=== PATIENT | male | born 1955 | race Caucasian/White ===

== ENCOUNTER → 2019-07-14 | Outpatient (CLI) | payer BC ==
--- NOTE | 2019-07-14 12:15 | EST ---
EXERCISE STRESS DATE OF SERVICE: 07/14/2019 AGE: 64 SEX: Male HT: 69" WT: 200 pounds PROTOCOL: Jimenez STAGE: IV DURATION OF EXERCISE: 11 minutes 28 seconds HEART RATE REST: 83 BLOOD PRESSURE REST: 141/86 MAXIMUM HEART RATE ACHIEVED: 171 MAXIMUM BLOOD PRESSURE: 222/81 85% MPHR: 134 100% MPHR: 158 METS: 12.1 INDICATIONS: CLINICAL INFORMATION: Baseline rhythm is sinus mechanism, rate of 83, normal axis and intervals with minor nonspecific ST-T wave changes. Baseline blood pressure 141/86 mmHg. Patient exercised on Jimenez protocol for 11 minute 28 seconds reaching a peak rate 171 beats per minute which is equal to 108% maximum predicted heart rate. Peak blood pressure 222/81 mmHg. Test was terminated secondary to fatigue. There was no chest pain. Electrocardiograph monitoring revealed a [address]-segment depression that resolved in recovery. CONCLUSION: 1. Excellent exercise tolerance with no chest discomfort. 2. Borderline positive electrocardiograph stress testing secondary to baseline EKG abnormality. 3. If clinically indicated, an imaging stress test will be helpful. MMODL / IJN: [id number] /
== END | disposition home or self-care (01) ==
LOC: RADNMMAIN 08:36
PROVIDERS: ATTEND Internal Medicine
DX: I10 Essential (primary) hypertension (principal); E78.5 Hyperlipidemia, unspecified
CPT/HCPCS: 93017

== ENCOUNTER 2020-09-21 14:18 | Inpatient (IN) | payer BC ==
--- NOTE | 2020-09-21 14:40 | ED ---
General Adult HPI - General Chief complaint: Shortness of Breath Stated complaint: SOB Time Seen by Provider: 09/21/20 14:20 Source: patient, RN notes reviewed, old records reviewed Mode of arrival: ambulatory Limitations: no limitations - History of Present Illness Initial comments: This is a 65-year-old male who comes emergency Department states that he has had symptoms for over 2 weeks and was tested positive on September 13. Patient states he is coming in today because he seems more short of breath than normal. He continues to spike a fever. Patient denies any sputum production. Patient states he does have a dry cough. Patient denies any chest pain or palpitations. Patient denies abdominal pain patient denies nausea vomiting diarrhea. Patient denies any loss of taste or smell. Patient denies any headache patient denies numbness weakness. - Related Data Home Medications Medication Instructions Recorded Confirmed No Known Home Medications 09/21/20 09/21/20 Allergies Allergy/AdvReac Type Severity Reaction Status Date / Time No Known Allergies Allergy Verified 09/21/20 16:02 Review of Systems ROS Statement: Those systems with pertinent positive or pertinent negative responses have been documented in the HPI. ROS Other: All systems not noted in ROS Statement are negative. Past Medical History Additional Past Medical History / Comment(s): covid, History of Any Multi-Drug Resistant Organisms: None Reported Past Surgical History: No Surgical Hx Reported Past Psychological History: No Psychological Hx Reported Smoking Status: Never smoker Past Alcohol Use History: Occasional Past Drug Use History: None Reported General Exam - General Exam Comments Initial Comments: GENERAL: Patient is well-developed and well-nourished. Patient is nontoxic and well- hydrated and is in mild distress. ENT: Neck is soft and supple. No significant lymphadenopathy is noted. Oropharynx is clear. Moist mucous membranes. Neck has full range of motion without eliciting any pain. EYES: The sclera were anicteric and conjunctiva were pink and moist. Extraocular movements were intact and pupils were equal round and reactive to light. Eyelid s were unremarkable. PULMONARY: Unlabored respirations. Good breath sounds bilaterally. No audible rales rhonchi or wheezing was noted. CARDIOVASCULAR: There is a regular rate and rhythm without any murmurs gallops or rubs. ABDOMEN: Soft and nontender with normal bowel sounds. SKIN: Skin is clear with no lesions or rashes and otherwise unremarkable. NEUROLOGIC: Patient is alert and oriented x3. Cranial nerves II through XII are grossly intact. Motor and sensory are also intact. Normal speech, volume and content. Symmetrical smile. MUSCULOSKELETAL: Normal extremities with adequate strength and full range of motion. No lower extremity swelling or edema. No calf tenderness. LYMPHATICS: No significant lymphadenopathy is noted PSYCHIATRIC: Normal psychiatric evaluation. Limitations: no limitations Course Vital Signs 09/21/20 09/21/20 14:20 15:45 Temperature 98.1 F Pulse Rate 97 Respiratory 18 18 Rate Blood Pressure 143/86 O2 Sat by Pulse 96 Oximetry Medical Decision Making - Medical Decision Making EKG shows normal sinus rhythm at 85 bpm IA interval 166 QRS is 92 QT interval 374 QTC is 445. Patient's EKG shows no ST segment elevation or depression. Patient was oxygenating at 89-90% at rest and with walking patient dropped down to consistent 86%. I spoke with some physicians he agreed to admit the patient admitted the patient I consult pulmonary. I started the patient on Decadron. - Lab Data Result diagrams: 09/21/20 15:17 09/21/20 15:17 Lab Results 09/21/20 09/21/20 09/21/20 Range/Units 15:17 15:17 15:17 WBC 11.3 H (3.8-10.6) k/uL RBC 4.68 (4.30-5.90) m/uL Hgb 13.8 (13.0-17.5) gm/dL Hct 40.4 (39.0-53.0) % MCV 86.3 (80.0-100.0) fL MCH 29.6 (25.0-35.0) pg MCHC 34.2 (31.0-37.0) g/dL RDW 12.4 (11.5-15.5) % Plt Count 192 (150-450) k/uL MPV 7.1 Neutrophils % 89 % Lymphocytes % 7 % Monocytes % 3 % Eosinophils % 0 % Basophils % 0 % Neutrophils # 10.0 H (1.3-7.7) k/uL Lymphocytes # 0.8 L (1.0-4.8) k/uL Monocytes # 0.3 (0-1.0) k/uL Eosinophils # 0.1 (0-0.7) k/uL Basophils # 0.0 (0-0.2) k/uL PT 9.5 (9.0-12.0) sec INR 0.9 (<1.2) APTT 21.9 L (22.0-30.0) sec D-Dimer 0.58 (<0.60) mg/L FEU Sodium 139 (137-145) mmol/L Potassium 4.1 (3.5-5.1) mmol/L Chloride 105 (98-107) mmol/L Carbon Dioxide 22 (22-30) mmol/L Anion Gap 12 mmol/L BUN 35 H (9-20) mg/dL Creatinine 1.37 H (0.66-1.25) mg/dL Est GFR (CKD-EPI)AfAm 63 (>60 ml/min/1.73 sqM) Est GFR (CKD-EPI)NonAf 55 (>60 ml/min/1.73 sqM) Glucose 123 H (74-99) mg/dL Plasma Lactic Acid Kojo (0.7-2.0) mmol/L Calcium 9.2 (8.4-10.2) mg/dL Magnesium 2.7 H (1.6-2.3) mg/dL Total Bilirubin 0.5 (0.2-1.3) mg/dL AST 31 (17-59) U/L ALT 19 (4-49) U/L Alkaline Phosphatase 55 (38-126) U/L Lactate Dehydrogenase 776 H (313-618) U/L C-Reactive Protein 187.3 H (<10.0) mg/L Total Protein 7.3 (6.3-8.2) g/dL Albumin 4.0 (3.5-5.0) g/dL 09/21/20 Range/Units 15:17 WBC (3.8-10.6) k/uL RBC (4.30-5.90) m/uL Hgb (13.0-17.5) gm/dL Hct (39.0-53.0) % MCV (80.0-100.0) fL MCH (25.0-35.0) pg MCHC (31.0-37.0) g/dL RDW (11.5-15.5) % Plt Count (150-450) k/uL MPV Neutrophils % % Lymphocytes % % Monocytes % % Eosinophils % % Basophils % % Neutrophils # (1.3-7.7) k/uL Lymphocytes # (1.0-4.8) k/uL Monocytes # (0-1.0) k/uL Eosinophils # (0-0.7) k/uL Basophils # (0-0.2) k/uL PT (9.0-12.0) sec INR (<1.2) APTT (22.0-30.0) sec D-Dimer (<0.60) mg/L FEU Sodium (137-145) mmol/L Potassium (3.5-5.1) mmol/L Chloride (98-107) mmol/L Carbon Dioxide (22-30) mmol/L Anion Gap mmol/L BUN (9-20) mg/dL Creatinine (0.66-1.25) mg/dL Est GFR (CKD-EPI)AfAm (>60 ml/min/1.73 sqM) Est GFR (CKD-EPI)NonAf (>60 ml/min/1.73 sqM) Glucose (74-99) mg/dL Plasma Lactic Acid Kojo 0.9 (0.7-2.0) mmol/L Calcium (8.4-10.2) mg/dL Magnesium (1.6-2.3) mg/dL Total Bilirubin (0.2-1.3) mg/dL AST (17-59) U/L ALT (4-49) U/L Alkaline Phosphatase (38-126) U/L Lactate Dehydrogenase (313-618) U/L C-Reactive Protein (<10.0) mg/L Total Protein (6.3-8.2) g/dL Albumin (3.5-5.0) g/dL Critical Care Time Critical Care Time: Yes Total Critical Care Time: 35 Disposition Clinical Impression: Pneumonia due to COVID-19 virus, Hypoxia Disposition: ADMITTED IP TO THIS HOSP Referrals: Shanna Bonilla NPC [Primary Care Provider] - 1-2 days Time of Disposition: 16:41
[2020-09-21 15:32] LABS: Basophils % (A) 0 %; Eosinophils # (A) 0.1 k/uL (0-0.7); Eosinophils % (A) 0 %; HCT 40.4 % (39.0-53.0); HGB 13.8 gm/dL (13.0-17.5); Lymphocytes # (A) 0.8 k/uL (1.0-4.8); Lymphocytes % (A) 7 %; MCH 29.6 pg (25.0-35.0); MCHC 34.2 g/dL (31.0-37.0); MCV 86.3 fL (80.0-100.0); Mean Platelet Volume 7.1; Monocytes # (A) 0.3 k/uL (0-1.0); Monocytes % (A) 3 %; Neutrophils % (A) 89 %; Platelet Count 192 k/uL (150-450); RBC 4.68 m/uL (4.30-5.90); RDW 12.4 % (11.5-15.5); WBC 11.3 k/uL (3.8-10.6)
--- NOTE | 2020-09-21 15:41 | XR ---
EXAMINATION TYPE: XR chest 2V DATE OF EXAM: 09/21/2020 COMPARISON: NONE HISTORY: Suspected COVID-19 pneumonia, shortness of breath. Positive test 3 weeks ago. TECHNIQUE: Frontal and lateral views of the chest are obtained. FINDINGS: Low lung volumes. There are increased opacities mid to lower lungs bilaterally. No pleura l effusion or pneumothorax seen bilaterally The cardiac silhouette size is stable and within normal l imits with atherosclerotic change aortic knob. The osseous structures are intact. IMPRESSION: Multifocal increased opacities in the bilateral mid to lower lungs consistent with covid -19 infection.
[2020-09-21 15:43] LABS: Calcium 9.2 mg/dL (8.4-10.2); Magnesium 2.7 mg/dL (1.6-2.3); Potassium 4.1 mmol/L (3.5-5.1); Total Bilirubin 0.5 mg/dL (0.2-1.3); Total Protein 7.3 g/dL (6.3-8.2)
[2020-09-21 15:59] LABS: INR 0.9 (<1.2); Partial Thromboplastin Time 21.9 sec (22.0-30.0); Prothrombin Time 9.5 sec (9.0-12.0)
[2020-09-21 16:01] LABS: C Reactive Protein 187.3 mg/L (<10.0)
[2020-09-21] MEDS ORDERED: dexAMETHasone 2 MG TAB PO STA (16:41)
[2020-09-21] MEDS ORDERED: SODIUM CHLORIDE 0.9% 1,000 ML IV ONE (16:42)
[2020-09-21] MEDS ORDERED: ONDANSETRON 4 MG/2 ML VIAL IVP PRN (17:12)
[2020-09-21] MEDS ORDERED: SODIUM CHLORIDE 0.9% (DEHP FRE 500 ML IV ONE (17:12)
[2020-09-21] MEDS ORDERED: ACETAMINOPHEN TAB 325 MG TAB PO PRN (17:12)
--- NOTE | 2020-09-21 17:23 | P.HPIM ---
History of Present Illness H&P Date: 09/21/20 Chief Complaint: Shortness of breath and cough This is a 65-year-old male with no significant past medical history who presented to the emergency room with worsening shortness of breath and cough. Patient was diagnosed with COVID-19 last week. He said multiple family members in his household tested positive and he was not feeling well so he went to a local urgent care on September 13 to get tested and got his results back on September 16 that was positive. Patient was prescribed azithromycin and a Medrol Dosepak in the urgent care. He said that he finished a course as prescribed. Hesaid that he has been having symptoms of shortness of breath and cough that is mostly nonproductive and occasionally productive of clear sputum. He is also reporting fevers and chills. He denies any diarrhea or chest pain. He has been monitoring his pulse ox at home and was initially in the mid 90s that is been trending down 80. Today he noted that his O2 sat was 85% at rest so he decided to come to the emergency room. Patient denies any other medical problems. No known lung disease. He is a nonsmoker. Patient was evaluated in the ER and a chest x-ray showed bilateral pneumonia. His O2 sats improved with stool liters of oxygen via nasal cannula. Review of Systems Review of system: 14 points review of systems were obtained and were negative except to what were mentioned in the HPI. Past Medical History Additional Past Medical History / Comment(s): covid, History of Any Multi-Drug Resistant Organisms: None Reported Past Surgical History: No Surgical Hx Reported Past Psychological History: No Psychological Hx Reported Smoking Status: Never smoker Past Alcohol Use History: Occasional Past Drug Use History: None Reported Medications and Allergies Home Medications Medication Instructions Recorded Confirmed Type No Known Home Medications 09/21/20 09/21/20 History Allergies Allergy/AdvReac Type Severity Reaction Status Date / Time No Known Allergies Allergy Verified 09/21/20 16:02 Physical Exam Vitals: Vital Signs Temp Pulse Resp BP Pulse Ox 09/21/20 16:47 90 16 134/83 95 09/21/20 15:45 18 09/21/20 14:20 98.1 F 97 18 143/86 96 Intake and Output 09/21/20 09/21/20 09/21/20 06:59 14:59 22:59 Other: Weight 90.718 kg General: The patient is awake and alert, in no distress Eye: there is normal conjunctiva bilaterally. Neck: The neck is supple, there is no JVD. Cardiovascular: Normal S1-S2, no S3-S4, no murmurs. Respiratory: Lungs scattered crackles bilaterally Gastrointestinal: Abdomen is soft, nontender Musculoskeletal: There is no pedal edema. Neurological:. Speech is normal. Skin: Skin is warm and dry Results CBC & Chem 7: 09/21/20 15:17 09/21/20 15:17 Labs: Abnormal Lab Results - Last 24 Hours (Table) 09/21/20 09/21/20 09/21/20 Range/Units 15:17 15:17 15:17 WBC 11.3 H (3.8-10.6) k/uL Neutrophils # 10.0 H (1.3-7.7) k/uL Lymphocytes # 0.8 L (1.0-4.8) k/uL APTT 21.9 L (22.0-30.0) sec BUN 35 H (9-20) mg/dL Creatinine 1.37 H (0.66-1.25) mg/dL Glucose 123 H (74-99) mg/dL Magnesium 2.7 H (1.6-2.3) mg/dL Lactate Dehydrogenase 776 H (313-618) U/L C-Reactive Protein 187.3 H (<10.0) mg/L Assessment and Plan Assessment: This is a 65-year-old male with past medical history noted below who presented to the emergency room with shortness of breath and cough a week after a positive diagnosis with COVID-19 to local urgent care. Patient was evaluated in the ER and admitted to the hospital for further management of his medical problems noted below. 1. COVID-19 pneumonia: With multifocal opacities noted on chest x-ray. I would start Decadron 6 mg daily. Vitamin C, vitamin D, zinc, and melatonin. We will continue to monitor inflammatory markers. CRP significantly elevated. D-dimer is normal. 2. Acute hypoxic respiratory failure: Currently on 2 L of oxygen via nasal cannula satting in the mid 90s. 3. Sepsis without septic shock: Lactic acid is normal. Normal saline 500 mL bolus ordered. 4. Acute kidney injury: Continue IV fluid hydration with normal saline at 75 mL per hour. 5. GI and DVT prophylaxis: Pepcid and subcu Lovenox 6. Patient is full code Today, I reviewed his medication list and lab work results. I would order Mucinex twice daily. Tessalon Perles as needed for cough. Patient was updated about his current condition. Repeat lab work in the morning.
[2020-09-21] MEDS: ASCORBIC ACID 500 MG TAB PO SCH (18:42)
[2020-09-21] MEDS: CHOLECALCIFEROL 25 MCG (1000 IU) TABLET PO SCH (18:43)
[2020-09-21] MEDS: ZINC SULFATE 220 MG CAP PO SCH (18:43)
[2020-09-21] MEDS: ALBUTEROL HFA INHALER INHALATION SCH (20:37)
[2020-09-22] MEDS: guaiFENesin 600 MG TABLET.ER PO SCH ×3 (00:13→20:13)
[2020-09-22] MEDS: FAMOTIDINE 20 MG TAB PO SCH ×3 (00:13→20:13)
[2020-09-22] MEDS: MELATONIN 5 MG TABLET PO SCH ×2 (00:14→20:13)
[2020-09-22 01:32] LABS: Ferritin 789.8 ng/mL (22.0-322.0)
[2020-09-22] MEDS: ALBUTEROL HFA INHALER INHALATION SCH ×4 (07:18→19:18)
[2020-09-22] MEDS: ASCORBIC ACID 500 MG TAB PO SCH (09:41)
[2020-09-22] MEDS: CHOLECALCIFEROL 25 MCG (1000 IU) TABLET PO SCH (09:41)
[2020-09-22] MEDS: ZINC SULFATE 220 MG CAP PO SCH (09:42)
[2020-09-22] MEDS: dexAMETHasone 2 MG TAB PO SCH (09:42)
[2020-09-22] MEDS: ENOXAPARIN 40 MG/0.4 ML SYRINGE SQ SCH (09:42)
--- NOTE | 2020-09-22 10:02 | P.PN ---
Subjective Progress Note Date: 09/22/20 Patient is feeling about the same today. He said his shortness of breath did not improve. He continued to have cough. He is satting 92% on 2 L of oxygen. No acute events overnight reported by nursing staff. Objective - Vital Signs Vital signs: Vital Signs Temp 98.3 F 09/22/20 05:50 Pulse 72 09/22/20 05:50 Resp 20 09/22/20 05:50 BP 118/77 09/22/20 05:50 Pulse Ox 95 09/22/20 07:18 Intake & Output 09/21/20 09/22/20 09/22/20 18:59 06:59 18:59 Weight 90.718 kg Other: Voiding Method Toilet - Exam General: The patient is awake and alert, in no distress Eye: there is normal conjunctiva bilaterally. Neck: The neck is supple, there is no JVD. Cardiovascular: Normal S1-S2, no S3-S4, no murmurs. Respiratory: Lungs clear to auscultation bilaterally Gastrointestinal: Abdomen is soft, nontender Musculoskeletal: There is no pedal edema. Neurological:. Speech is normal. Skin: Skin is warm and dry - Labs CBC & Chem 7: 09/21/20 15:17 09/21/20 15:17 Labs: Abnormal Lab Results - Last 24 Hours (Table) 09/21/20 09/21/20 09/21/20 Range/Units 15:17 15:17 15:17 WBC 11.3 H (3.8-10.6) k/uL Neutrophils # 10.0 H (1.3-7.7) k/uL Lymphocytes # 0.8 L (1.0-4.8) k/uL APTT 21.9 L (22.0-30.0) sec BUN 35 H (9-20) mg/dL Creatinine 1.37 H (0.66-1.25) mg/dL Glucose 123 H (74-99) mg/dL Magnesium 2.7 H (1.6-2.3) mg/dL Ferritin 789.8 H (22.0-322.0) ng/mL Lactate Dehydrogenase 776 H (313-618) U/L C-Reactive Protein 187.3 H (<10.0) mg/L Procalcitonin (0.02-0.09) ng/mL 09/21/20 Range/Units 15:17 WBC (3.8-10.6) k/uL Neutrophils # (1.3-7.7) k/uL Lymphocytes # (1.0-4.8) k/uL APTT (22.0-30.0) sec BUN (9-20) mg/dL Creatinine (0.66-1.25) mg/dL Glucose (74-99) mg/dL Magnesium (1.6-2.3) mg/dL Ferritin (22.0-322.0) ng/mL Lactate Dehydrogenase (313-618) U/L C-Reactive Protein (<10.0) mg/L Procalcitonin 0.13 H (0.02-0.09) ng/mL Assessment and Plan Assessment: This is a 65-year-old male with past medical history noted below who presented to the emergency room with shortness of breath and cough a week after a positive diagnosis with COVID-19 to local urgent care. Patient was evaluated in the ER and admitted to the hospital for further management of his medical problems noted below. 1. COVID-19 pneumonia: With multifocal opacities noted on chest x-ray. Decadron 6 mg daily day #2. Vitamin C, vitamin D, zinc, and melatonin. We will continue to monitor inflammatory markers. Awaiting pulmonology evaluation 2. Acute hypoxic respiratory failure: Currently on 2 L of oxygen via nasal cannula. 3. Sepsis without septic shock: Lactic acid is normal. Received aggressive IV fluid hydration. 4. Acute kidney injury: Awaiting repeat lab work today 5. GI and DVT prophylaxis: Pepcid and subcu Lovenox 6. Patient is full code Today, I reviewed his medication list and lab work results. Continue Mucinex and Tessalon Perles for cough. Patient was updated about his current condition. Repeat lab work in the morning.
[2020-09-22 10:27] LABS: Basophils # (A) 0.01 X 10*3/uL (0.00-0.10); Basophils % (A) 0.2 %; Eosinophils # (A) 0 X 10*3/uL (0.04-0.35); Eosinophils % (A) 0 %; HCT 38.9 % (39.6-50.0); HGB 12.9 g/dL (13.0-17.0); Lymphocytes % (A) 9.5 %; MCH 29.1 pg (27.0-32.0); MCHC 33.2 g/dL (32.0-37.0); MCV 87.8 fL (80.0-97.0); Mean Platelet Volume 10.1 fL (9.5-12.2); Monocytes # (A) 0.43 X 10*3/uL (0.20-1.00); Monocytes % (A) 6.8 %; Neutrophils # (A) 5.21 X 10*3/uL (1.80-7.70); Neutrophils % (A) 82.7 %; Platelet Count 214 X 10*3/uL (140-440); RBC 4.43 X 10*6/uL (4.40-5.60); RDW 12.9 % (11.5-14.5)
[2020-09-22 11:09] LABS: African American GFR (CKD) 82.4 (60.0-200.0); Calcium 9.2 mg/dL (8.7-10.3); Non-African American GFR(CKD) 71.1 (60.0-200.0); Potassium 4.9 mmol/L (3.5-5.5)
[2020-09-22] MEDS: BENZONATATE 100 MG CAP PO PRN (11:32)
--- NOTE | 2020-09-22 14:37 | P.CNPUL ---
History of Present Illness Consult date: 09/22/20 Requesting physician: Miguel Angel Gibbs Reason for consult: dyspnea, hypoxemia, abnormal CXR/CT Chief complaint: Cough, shortness of breath, hypoxia History of present illness: 65-year-old white [facility] with no significant medical history who presented to the emergency department for evaluation of hypoxia. Patient has been having symptoms of cough, dyspnea since September 04, 2020, and tested positive for COVID 19 on 09/13/2020. Patient was also having symptoms of diarrhea which has subsided by now, on 09/20/2020 patient noted that his pulse ox was now low at 85% on room air. Chest x-ray showed focal increased opacities in the bilateral mid to lower lungs consistent with COVID 19 infection. Admission blood work has been reviewed showing lymphopenia with l ymphocyte count 0.8, white blood cell count of 11.3, with neutrophils of 10, d- dimer was negative at 0.58, electrolytes were within normal limits, patient had a BUN of 35 and creatinine of 1.37, ferritin level of 789, LDH of 776, CRP of 187, and pro-calcitonin level of 0.13. Patient was started on multivitamins, was given IV hydration, Decadron, and prophylactic dose Lovenox. We are asked to see the patient in consultation Review of Systems All systems: negative Constitutional: Denies chills, Denies fever Eyes: denies blurred vision, denies pain Ears, nose, mouth and throat: Denies headache, Denies sore throat Cardiovascular: Denies chest pain, Denies shortness of breath Respiratory: Reports cough, Reports dyspnea Gastrointestinal: Reports diarrhea, Denies abdominal pain, Denies nausea, Denies vomiting Musculoskeletal: Denies myalgias Integumentary: Denies pruritus, Denies rash Neurological: Denies numbness, Denies weakness Psychiatric: Denies anxiety, Denies depression Endocrine: Denies fatigue, Denies weight change Past Medical History Additional Past Medical History / Comment(s): covid, History of Any Multi-Drug Resistant Organisms: None Reported Past Surgical History: No Surgical Hx Reported Past Anesthesia/Blood Transfusion Reactions: Unable to Obtain Past Psychological History: No Psychological Hx Reported Smoking Status: Never smoker Past Alcohol Use History: Occasional Past Drug Use History: None Reported Medications and Allergies Home Medications Medication Instructions Recorded Confirmed Type No Known Home Medications 09/21/20 09/21/20 History Allergies Allergy/AdvReac Type Severity Reaction Status Date / Time No Known Allergies Allergy Verified 09/21/20 16:02 Physical Exam Vitals: Vital Signs Temp Pulse Pulse Resp BP BP Pulse Ox 09/22/20 10:09 20 09/22/20 09:00 98.1 F 87 16 137/77 91 L 09/22/20 07:18 95 09/22/20 05:50 98.3 F 72 20 118/77 92 L 09/22/20 01:38 98.5 F 77 20 120/77 93 L 09/21/20 21:38 98.5 F 88 20 135/80 95 09/21/20 16:47 90 16 134/83 95 09/21/20 15:45 18 Intake and Output 09/21/20 09/22/20 09/22/20 22:59 06:59 14:59 Intake Total 400 Balance 400 Intake: Oral 400 Other: Voiding Method Toilet Toilet Weight 90.718 kg GENERAL EXAM: Alert, very pleasant, 65-year-old white male, on 2 L of oxygen a pulse ox of 91% comfortable in no apparent distress. HEAD: Normocephalic/atraumatic. EYES: Normal reaction of pupils, equal size. Conjunctiva pink, sclera white. NOSE: Clear with pink turbinates. THROAT: No erythema or exudates. NECK: No masses, no JVD, no thyroid enlargement, no adenopathy. CHEST: No chest wall deformity. Symmetrical expansion. LUNGS: Equal air entry with mild basilar crackles, but no wheeze, rhonchi or dullness. CVS: Regular rate and rhythm, normal S1 and S2, no gallops, no murmurs, no rubs ABDOMEN: Soft, nontender. No hepatosplenomegaly, normal bowel sounds, no guarding or rigidity. EXTREMITIES: No clubbing, no edema, no cyanosis, 2+ pulses and upper and lower extremities. MUSCULOSKELETAL: Muscle strength and tone normal. SPINE: No scoliosis or deformity SKIN: No rashes CENTRAL NERVOUS SYSTEM: Alert and oriented -3. No focal deficits, tone is normal in all 4 extremities. PSYCHIATRIC: Alert and oriented -3. Appropriate affect. Intact judgment and insight. Results - Laboratory Findings CBC and BMP: 09/22/20 07:00 09/22/20 07:00 PT/INR, D-dimer PT 9.5 sec (9.0-12.0) 09/21/20 15:17 INR 0.9 (<1.2) 09/21/20 15:17 D-Dimer 0.58 mg/L FEU (<0.60) 09/21/20 15:17 Abnormal lab findings: Abnormal Labs 09/21/20 09/21/20 09/21/20 15:17 15:17 15:17 WBC 11.3 H Hgb Hct Immature Gran # Neutrophils # 10.0 H Lymphocytes # 0.8 L Eosinophils # APTT 21.9 L BUN 35 H Creatinine 1.37 H BUN/Creatinine Ratio Glucose 123 H Magnesium 2.7 H Ferritin 789.8 H Lactate Dehydrogenase 776 H C-Reactive Protein 187.3 H Procalcitonin 09/21/20 09/22/20 09/22/20 15:17 07:00 07:00 WBC Hgb 12.9 L Hct 38.9 L Immature Gran # 0.05 H Neutrophils # Lymphocytes # 0.60 L Eosinophils # 0 L APTT BUN 33.0 H Creatinine BUN/Creatinine Ratio 30.00 H Glucose 135 H Magnesium Ferritin Lactate Dehydrogenase C-Reactive Protein Procalcitonin 0.13 H - Diagnostic Findings Chest x-ray: report reviewed, image reviewed Additional studies: EKG reviewed Assessment and Plan Plan: Assessment: #1. Acute hypoxic respiratory failure related to acute COVID 19 related pneumonitis, patient has had symptoms since September 04, tested positive on September 13, patient is out of the therapeutic window for Remdesivir #2. Cough, dyspnea, diarrhea related to the above, and diarrhea has subsided #3. Acute kidney injury related to dehydration, improved with hydration #4. Elevated inflammatory markers related to the above #5. Never smoker Plan: Continue multi-vitamins, we'll continue Decadron, continue Pepcid, continue IV hydration, patient is out of the therapeutic window for Remdesivir. We will add colchicine 0.6 mg twice a day, continue prophylactic dose Lovenox. We'll continue to follow and monitor oxygenation pattern and dyspnea. I performed a history & physical examination of the patient and discussed their management with my nurse practitioner, Myesha Farah. I reviewed the nurse practitioner's note and agree with the documented findings and plan of care. Lung sounds are positive for basilar crackles throughout the lung giraldo. The findings and the impression was discussed with the patient. I attest to the documentation by the nurse practitioner. Time with Patient: Greater than 30
[2020-09-22] MEDS: COLCHICINE 0.6 MG EACH PO SCH (20:13)
[2020-09-23] MEDS: FAMOTIDINE 20 MG TAB PO SCH ×2 (07:08→20:38)
[2020-09-23] MEDS: guaiFENesin 600 MG TABLET.ER PO SCH ×2 (07:08→20:38)
[2020-09-23] MEDS: COLCHICINE 0.6 MG EACH PO SCH ×2 (07:08→20:38)
[2020-09-23] MEDS: dexAMETHasone 2 MG TAB PO SCH (07:08)
[2020-09-23] MEDS: CHOLECALCIFEROL 25 MCG (1000 IU) TABLET PO SCH (07:09)
[2020-09-23] MEDS: ZINC SULFATE 220 MG CAP PO SCH (07:09)
[2020-09-23] MEDS: ENOXAPARIN 40 MG/0.4 ML SYRINGE SQ SCH (07:09)
[2020-09-23] MEDS: ASCORBIC ACID 500 MG TAB PO SCH (07:09)
[2020-09-23] MEDS: BENZONATATE 100 MG CAP PO PRN (07:24)
[2020-09-23] MEDS: ALBUTEROL HFA INHALER INHALATION SCH ×4 (08:30→20:15)
--- NOTE | 2020-09-23 09:01 | XR ---
EXAMINATION TYPE: XR chest 1V portable DATE OF EXAM: 09/23/2020 COMPARISON: Chest x-ray 09/21/2020 HISTORY: Covid TECHNIQUE: Single frontal view of the chest is obtained. FINDINGS: Bilateral patchy densities persist within the lungs. There is no evident pneumothorax or p leural effusion. Cardiomediastinal silhouette is stable. IMPRESSION: Correlate for pneumonia.
--- NOTE | 2020-09-23 11:05 | P.PN ---
Subjective Progress Note Date: 09/23/20 Patient is feeling about the same compared to yesterday. He is still short of breath. O2 sat with ambulation on room air this morning 84%. Chest x-ray with no improvement. Objective - Vital Signs Vital signs: Vital Signs Temp 98.3 F 09/23/20 05:00 Pulse 70 09/23/20 05:00 Resp 22 09/23/20 08:00 BP 129/79 09/23/20 05:00 Pulse Ox 84 L 09/23/20 07:28 Intake & Output 09/22/20 09/23/20 09/23/20 18:59 06:59 18:59 Intake Total 600 100 Balance 600 100 Intake: Oral 600 100 Other: Voiding Method Toilet Toilet Toilet # Voids 2 - Exam General: The patient is awake and alert, in no distress Eye: there is normal conjunctiva bilaterally. Neck: The neck is supple, there is no JVD. Cardiovascular: Normal S1-S2, no S3-S4, no murmurs. Respiratory: Lungs clear to auscultation bilaterally Gastrointestinal: Abdomen is soft, nontender Musculoskeletal: There is no pedal edema. Neurological:. Speech is normal. Skin: Skin is warm and dry - Labs CBC & Chem 7: 09/22/20 07:00 09/22/20 07:00 Labs: Abnormal Lab Results - Last 24 Hours (Table) 09/22/20 Range/Units 07:00 BUN 33.0 H (9.0-27.0) mg/dL BUN/Creatinine Ratio 30.00 H (12.00-20.00) Ratio Glucose 135 H (70-110) mg/dL Microbiology - Last 24 Hours (Table) 09/21/20 15:15 Blood Culture - Preliminary Blood No Growth after 24 hours 09/21/20 15:00 Blood Culture - Preliminary Blood No Growth after 24 hours Assessment and Plan Assessment: This is a 65-year-old male with past medical history noted below who presented to the emergency room with shortness of breath and cough a week after a positive diagnosis with COVID-19 to local urgent care. Patient was evaluated in the ER and admitted to the hospital for further management of his medical problems noted below. 1. COVID-19 pneumonia: With multifocal opacities noted on chest x-ray. Decadron 6 mg daily day #3. Colchicine added by pulmonology Vitamin C, vitamin D, zinc, and melatonin. We will continue to monitor inflammatory markers. Out of the window for Remdesivir 2. Acute hypoxic respiratory failure: Currently on 2 L of oxygen via nasal cannula. 3. Sepsis without septic shock: Lactic acid is normal. Received aggressive IV fluid hydration. 4. Acute kidney injury: Resolved with IV fluid hydration 5. GI and DVT prophylaxis: Pepcid and subcu Lovenox 6. Patient is full code Today, I reviewed his medication list and lab work results. Continue Mucinex and Tessalon Perles for cough. Patient was updated about his current condition. Repeat lab work in the morning. Reassess in the morning. May be able to be discharged home with home O2 tomorrow
[2020-09-23 11:07] LABS: Basophils # (A) 0.03 X 10*3/uL (0.00-0.10); Basophils % (A) 0.4 %; Eosinophils # (A) 0 X 10*3/uL (0.04-0.35); Eosinophils % (A) 0 %; HCT 41.5 % (39.6-50.0); HGB 13.5 g/dL (13.0-17.0); Lymphocytes # (A) 1.13 X 10*3/uL (0.90-5.00); Lymphocytes % (A) 14.5 %; MCH 29.2 pg (27.0-32.0); MCHC 32.5 g/dL (32.0-37.0); MCV 89.8 fL (80.0-97.0); Mean Platelet Volume 10.2 fL (9.5-12.2); Monocytes # (A) 0.71 X 10*3/uL (0.20-1.00); Monocytes % (A) 9.1 %; Neutrophils % (A) 74.5 %; Platelet Count 259 X 10*3/uL (140-440); RBC 4.62 X 10*6/uL (4.40-5.60); RDW 12.8 % (11.5-14.5); WBC 7.79 X 10*3/uL (4.50-10.00)
[2020-09-23 11:58] LABS: African American GFR (CKD) 92.4 (60.0-200.0); Anion Gap 13.3 mmol/L (4.00-12.00); Calcium 9.2 mg/dL (8.7-10.3); Carbon Dioxide 24.7 mmol/L (21.6-31.8); Ferritin 1316.5 ng/mL (22.0-322.0); Non-African American GFR(CKD) 79.7 (60.0-200.0); Potassium 4.9 mmol/L (3.5-5.5)
--- NOTE | 2020-09-23 13:45 | P.PN ---
Subjective Progress Note Date: 09/23/20 Principal diagnosis: Acute hypoxic respiratory failure secondary to CoVID 19 pneumonitis 65-[facility] with [facility] who presented to the emergency department for evaluation of hypoxia. Patient has been having symptoms of cough, dyspnea since September 04, 2020, and tested positive for COVID 19 on 09/13/2020. Patient was also having symptoms of diarrhea which has subsided by now, on 09/20/2020 patient noted that his pulse ox was now low at 85% on room air. Chest x-ray showed focal increased opacities in the bilateral mid to lower lungs consistent with COVID 19 infection. Admission blood work has been reviewed showing lymphopenia with lymphocyte count 0.8, white blood cell count of 11.3, with neutrophils of 10, d- dimer was negative at 0.58, electrolytes were within normal limits, patient had a BUN of 35 and creatinine of 1.37, ferritin level of 789, LDH of 776, CRP of 187, and pro-calcitonin level of 0.13. Patient was started on multivitamins, was given IV hydration, Decadron, and prophylactic dose Lovenox. We are asked to see the patient in consultation. The patient is seen today 09/23/2020 up on the regular medical floor. He is currently resting comfortably in bed. Awake and alert in no acute distress. About the same today as compared to yesterday. He does desaturate to 84% while ambulating on room air. He would require home oxygen. Blood cultures reveal no growth. White count 7.7. Hemoglobin 13.5. Sodium 143. Potassium 4.9. Creatinine 1.0. Glucose 1:15. Ferritin level 1316. LDH 266. Continued on vitamin supplements, Colcrys, dexamethasone, Lovenox, melatonin, Pepcid. Outside the window for Remdesivir. Chest x-ray ontinues to show bilateral patchy densities. Objective - Vital Signs Vital signs: Vital Signs Temp 97.8 F 09/23/20 11:00 Pulse 71 09/23/20 11:00 Resp 16 09/23/20 11:00 BP 136/82 09/23/20 11:00 Pulse Ox 93 L 09/23/20 11:00 Intake & Output 03/10/21 03/11/21 03/11/21 18:59 06:59 18:59 Intake Total 600 400 Balance 600 400 Intake: Oral 600 400 Other: Voiding Method Toilet Toilet Toilet # Voids 2 - Exam GENERAL EXAM: Alert, very pleasant, 65-year-old male patient, on 2 L of oxygen a pulse ox of 94% comfortable in no apparent distress. HEAD: Normocephalic/atraumatic. EYES: Normal reaction of pupils, equal size. Conjunctiva pink, sclera white. NOSE: Clear with pink turbinates. THROAT: No erythema or exudates. NECK: No masses, no JVD, no thyroid enlargement, no adenopathy. CHEST: No chest wall deformity. Symmetrical expansion. LUNGS: Equal air entry with mild basilar crackles, but no wheeze, rhonchi or dullness. CVS: Regular rate and rhythm, normal S1 and S2, no gallops, no murmurs, no rubs ABDOMEN: Soft, nontender. No hepatosplenomegaly, normal bowel sounds, no guarding or rigidity. EXTREMITIES: No clubbing, no edema, no cyanosis, 2+ pulses and upper and lower extremities. MUSCULOSKELETAL: Muscle strength and tone normal. SPINE: No scoliosis or deformity SKIN: No rashes CENTRAL NERVOUS SYSTEM: Alert and oriented -3. No focal deficits, tone is normal in all 4 extremities. PSYCHIATRIC: Alert and oriented -3. Appropriate affect. Intact judgment and insight. - Labs CBC & Chem 7: 09/23/20 07:31 09/23/20 07:31 Labs: Abnormal Lab Results - Last 24 Hours (Table) 09/21/20 09/23/20 09/23/20 Range/Units 18:45 07:31 07:31 Immature Gran # 0.12 H (0.00-0.04) X 10*3/uL Eosinophils # 0 L (0.04-0.35) X 10*3/uL Anion Gap 13.30 H (4.00-12.00) mmol/L BUN 30.0 H (9.0-27.0) mg/dL BUN/Creatinine Ratio 30.00 H (12.00-20.00) Ratio Glucose 115 H (70-110) mg/dL Ferritin 1316.5 H (22.0-322.0) ng/mL Lactate Dehydrogenase 266 H (120-246) U/L Coronavirus (PCR) Detected A (Not Detected) Microbiology - Last 24 Hours (Table) 09/21/20 15:15 Blood Culture - Preliminary Blood No Growth after 24 hours 09/21/20 15:00 Blood Culture - Preliminary Blood No Growth after 24 hours Assessment and Plan Assessment: 1 Acute hypoxic respiratory failure related to acute COVID 19 related pneumonitis, patient has had symptoms since September 04, tested positive on September 13, patient is out of the therapeutic window for Remdesivir 2 Cough, dyspnea, diarrhea related to the above, and diarrhea has subsided 3 Acute kidney injury related to dehydration, improved with hydration 4 Elevated inflammatory markers related to the above 5 Never smoker Plan: The patient was seen and evaluated by Dr. Gallo Chest x-ray and labs reviewed Continue current treatment plan May require home oxygen Follow-up in the office in 3 weeks I, the cosigning physician, performed a history & physical examination of the patient. Lungs sounds with basilar crackles. Maintaining good O2 saturations in the 90s on 2 L/m per nasal cannula. I discussed the assessment and plan of care with my nurse practitioner, Jessica Méndez. I attest to the above note as dictated by her.
[2020-09-23 14:21] LABS: C Reactive Protein 6.4 mg/dL (0.0-0.8)
[2020-09-23 17:48] VITALS: RESP 18
[2020-09-23] MEDS: MELATONIN 5 MG TABLET PO SCH (20:38)
[2020-09-24 07:03] LABS: Basophils % (A) 0 %; Eosinophils % (A) 0 %; HCT 38.4 % (39.0-53.0); HGB 12.9 gm/dL (13.0-17.5); Lymphocytes # (A) 1.1 k/uL (1.0-4.8); Lymphocytes % (A) 14 %; MCH 29.1 pg (25.0-35.0); MCHC 33.6 g/dL (31.0-37.0); MCV 86.6 fL (80.0-100.0); Mean Platelet Volume 7.1; Monocytes # (A) 0.6 k/uL (0-1.0); Monocytes % (A) 7 %; Neutrophils % (A) 77 %; Platelet Count 245 k/uL (150-450); RBC 4.44 m/uL (4.30-5.90); RDW 12.7 % (11.5-15.5); WBC 7.8 k/uL (3.8-10.6)
[2020-09-24 07:11] LABS: African American GFR (CKD) >90 (>60 ml/min/1.73 sqM); Anion Gap 8 mmol/L; Blood Urea Nitrogen 30 mg/dL (9-20); Calcium 9.1 mg/dL (8.4-10.2); Carbon Dioxide 28 mmol/L (22-30); Chloride 105 mmol/L (98-107); Glucose 106 mg/dL (74-99); Non-African American GFR(CKD) >90 (>60 ml/min/1.73 sqM); Potassium 4.8 mmol/L (3.5-5.1); Sodium 141 mmol/L (137-145)
[2020-09-24] MEDS: ALBUTEROL HFA INHALER INHALATION SCH ×2 (08:43→12:01)
[2020-09-24] MEDS: ENOXAPARIN 40 MG/0.4 ML SYRINGE SQ SCH (09:33)
[2020-09-24] MEDS: CHOLECALCIFEROL 25 MCG (1000 IU) TABLET PO SCH (09:33)
[2020-09-24] MEDS: COLCHICINE 0.6 MG EACH PO SCH (09:34)
[2020-09-24] MEDS: dexAMETHasone 2 MG TAB PO SCH (09:34)
[2020-09-24] MEDS: ASCORBIC ACID 500 MG TAB PO SCH (09:34)
[2020-09-24] MEDS: guaiFENesin 600 MG TABLET.ER PO SCH (09:34)
[2020-09-24] MEDS: FAMOTIDINE 20 MG TAB PO SCH (09:34)
[2020-09-24] MEDS: ZINC SULFATE 220 MG CAP PO SCH (09:35)
[2020-09-24 09:41] VITALS: BP 120/70; PULSE 73; TEMP 98.3
--- NOTE | 2020-09-24 11:19 | P.DS ---
Providers Date of admission: 09/21/20 16:42 Expected date of discharge: 09/24/20 Attending physician: Miguel Angel Gibbs Consults: 09/21/20 16:42 Consult Physician Urgent Consulting Provider: Anitra Gallo Consult Reason/Comments: COVID pneumonia Do you want consulting provider notified?: Yes Primary care physician: Shanna Bonilla, [facility] Hospital Course: This is a 65-year-old male with past medical history noted below who presented to the emergency room with shortness of breath and cough a week after a positive diagnosis with COVID-19 to local urgent care. Patient was evaluated in the ER and admitted to the hospital for further management of his medical problems noted below. 1. COVID-19 pneumonia: With multifocal opacities noted on chest x-ray. Decadron 6 mg daily day #4. Colchicine added by pulmonology. Vitamin C, vitamin D, zinc, and melatonin. Out of the window for Remdesivir. Inflammatory markers including CRP and LDH improved. 2. Acute hypoxic respiratory failure: Resolved. Patient was satting 91% on room air with ambulation on the day of discharge. 3. Sepsis without septic shock: Lactic acid is normal. Received aggressive IV fluid hydration. Blood cultures negative 4. Acute kidney injury: Resolved with IV fluid hydration Patient will be discharged home in a stable condition. He will finish a 10 days course of Decadron. Patient Condition at Discharge: Fair Plan - Discharge Summary Discharge Rx Participant: Yes New Discharge Prescriptions: New Dexamethasone [Decadron] 6 mg PO DAILY #6 tablet Melatonin 5 mg PO HS #14 tablet guaiFENesin [Mucinex] 1,200 mg PO Q12HR #14 tablet.er Zinc Sulfate [Orazinc] 220 mg PO DAILY #14 cap Albuterol Inhaler [Ventolin Hfa Inhaler] 2 puff INHALATION RT-QID PRN #1 inh PRN Reason: Shortness Of Breath Ascorbic Acid [Vitamin C] 1,000 mg PO DAILY #14 tab Cholecalciferol [Vitamin D3 (25 Mcg = 1000 Iu)] 50 mcg PO DAILY #14 tablet Discharge Medication List Albuterol Inhaler [Ventolin Hfa Inhaler] 2 puff INHALATION RT-QID PRN #1 inh 09/24/20 [Rx] Ascorbic Acid [Vitamin C] 1,000 mg PO DAILY #14 tab 09/24/20 [Rx] Cholecalciferol [Vitamin D3 (25 Mcg = 1000 Iu)] 50 mcg PO DAILY #14 tablet 09/24/20 [Rx] Dexamethasone [Decadron] 6 mg PO DAILY #6 tablet 09/24/20 [Rx] Melatonin 5 mg PO HS #14 tablet 09/24/20 [Rx] Zinc Sulfate [Orazinc] 220 mg PO DAILY #14 cap 09/24/20 [Rx] guaiFENesin [Mucinex] 1,200 mg PO Q12HR #14 tablet.er 09/24/20 [Rx] Follow up Appointment(s)/Referral(s): Anitra Gallo MD [STAFF PHYSICIAN] - 3 Weeks Shanna Bonilla NPC [Primary Care Provider] - 1-2 days Discharge Disposition: HOME SELF-CARE
--- NOTE | 2020-09-24 13:47 | P.PN ---
Subjective Progress Note Date: 09/24/20 Principal diagnosis: Acute hypoxic respiratory failure secondary to CoVID 19 pneumonitis 65-year-old [facility] who presented to the emergency department for evaluation of hypoxia. Patient has been having symptoms of cough, dyspnea since September 04, 2020, and tested positive for COVID 19 on 09/13/2020. Patient was also having symptoms of diarrhea which has subsided by now, on 09/20/2020 patient noted that his pulse ox was now low at 85% on room air. Chest x-ray showed focal increased opacities in the bilateral mid to lower lungs consistent with COVID 19 infection. Admission blood work has been reviewed showing lymphopenia with lymphocyte count 0.8, white blood cell count of 11.3, with neutrophils of 10, d- dimer was negative at 0.58, electrolytes were within normal limits, patient had a BUN of 35 and creatinine of 1.37, ferritin level of 789, LDH of 776, CRP of 187, and pro-calcitonin level of 0.13. Patient was started on multivitamins, was given IV hydration, Decadron, and prophylactic dose Lovenox. We are asked to see the patient in consultation. The patient is seen today 09/23/2020 up on the regular medical floor. He is currently resting comfortably in bed. Awake and alert in no acute distress. About the same today as compared to yesterday. He does desaturate to 84% while ambulating on room air. He would require home oxygen. Blood cultures reveal no growth. White count 7.7. Hemoglobin 13.5. Sodium 143. Potassium 4.9. Creatinine 1.0. Glucose 1:15. Ferritin level 1316. LDH 266. Continued on vitamin supplements, Colcrys, dexamethasone, Lovenox, melatonin, Pepcid. Outside the window for Remdesivir. Chest x-ray ontinues to show bilateral patchy densities. The patient is seen today 09/24/2020 and on the regular medical floor. He is currently resting in bed. Awake and alert in no acute distress. He is feeling a bit better today compared to yesterday. He is maintaining O2 saturations in the 90s on room air. White count 7.8. Hemoglobin 12.9. Lymphocytes 1.1. Sodium 141. Potassium 4.8. Creatinine 0.88. Objective - Vital Signs Vital signs: Vital Signs Temp 98.3 F 09/24/20 09:40 Pulse 73 09/24/20 09:40 Resp 18 09/24/20 09:40 BP 120/70 09/24/20 09:40 Pulse Ox 95 09/24/20 09:40 Intake & Output 09/23/20 09/24/20 09/24/20 18:59 06:59 18:59 Intake Total 400 Balance 400 Intake: Oral 400 Other: Voiding Method Toilet Toilet Toilet # Voids 2 - Exam GENERAL EXAM: Alert, very pleasant, 65-year-old male patient, on room air, comfortable in no apparent distress. HEAD: Normocephalic/atraumatic. EYES: Normal reaction of pupils, equal size. Conjunctiva pink, sclera white. NOSE: Clear with pink turbinates. THROAT: No erythema or exudates. NECK: No masses, no JVD, no thyroid enlargement, no adenopathy. CHEST: No chest wall deformity. Symmetrical expansion. LUNGS: Equal air entry with mild basilar crackles, but no wheeze, rhonchi or dullness. CVS: Regular rate and rhythm, normal S1 and S2, no gallops, no murmurs, no rubs ABDOMEN: Soft, nontender. No hepatosplenomegaly, normal bowel sounds, no guarding or rigidity. EXTREMITIES: No clubbing, no edema, no cyanosis, 2+ pulses and upper and lower extremities. MUSCULOSKELETAL: Muscle strength and tone normal. SPINE: No scoliosis or deformity SKIN: No rashes CENTRAL NERVOUS SYSTEM: Alert and oriented -3. No focal deficits, tone is normal in all 4 extremities. PSYCHIATRIC: Alert and oriented -3. Appropriate affect. Intact judgment and insight. - Labs CBC & Chem 7: 09/24/20 06:23 09/24/20 06:23 Labs: Abnormal Lab Results - Last 24 Hours (Table) 09/23/20 09/24/20 09/24/20 Range/Units 07:31 06:23 06:23 Hgb 12.9 L (13.0-17.5) gm/dL Hct 38.4 L (39.0-53.0) % BUN 30 H (9-20) mg/dL Glucose 106 H (74-99) mg/dL C-Reactive Protein 6.4 H (0.0-0.8) mg/dL Microbiology - Last 24 Hours (Table) 09/21/20 15:15 Blood Culture - Preliminary Blood No Growth after 48 hours 09/21/20 15:00 Blood Culture - Preliminary Blood No Growth after 48 hours Assessment and Plan Assessment: 1 Acute hypoxic respiratory failure related to acute COVID 19 related pneumonitis, patient has had symptoms since September 04, tested positive on September 13, patient is out of the therapeutic window for Remdesivir 2 Cough, dyspnea, diarrhea related to the above, and diarrhea has subsided 3 Acute kidney injury related to dehydration, improved with hydration 4 Elevated inflammatory markers related to the above 5 Never smoker Plan: The patient was seen and evaluated by Dr. Gallo Cleared for discharge from the pulmonary standpoint Complete a course of 10 days of dexamethasone Continue vitamin supplements Follow-up in the office in 3 weeks I, the cosigning physician, performed a history & physical examination of the patient. Lungs sounds with basilar crackles. Maintaining good O2 saturations in the 90s on room air. I discussed the assessment and plan of care with my nurse practitioner, Jessica Méndez. I attest to the above note as dictated by her.
== END 2020-09-24 13:30 | disposition home or self-care (01) | DRG 871 ==
LOC: SUPCPDRO 14:18 → EC 14:18 → 4SSUR 16:42
PROVIDERS: ADMIT Internal Medicine; ATTEND Internal Medicine
DX: A41.89 Other specified sepsis (principal); U07.1 COVID-19; J96.01 Acute respiratory failure with hypoxia; J12.82 Pneumonia due to coronavirus disease 2019; N17.9 Acute kidney failure, unspecified; A08.39 Other viral enteritis; E86.0 Dehydration; D72.810 Lymphocytopenia
CPT/HCPCS: 36415; 71045; 71046; 80048; 80053; 82728; 83605; 83615; 83735; 84145; 85025; 85379; 85610; 85730; 86140; 87040; 93005; 94640; 94760; 96360; 96361; 99291

== ENCOUNTER → 2023-05-29 | Outpatient (CLI) | payer MEDICARE ==
[2023-05-29 15:48] LABS: Blood Urea Nitrogen 10.7 mg/dL (9.0-27.0); Glucose 116 mg/dL (70-110)
[2023-05-29 15:49] LABS: Carbon Dioxide 27.1 mmol/L (21.6-31.8); Chloride 104 mmol/L (96-109); Potassium 5.8 mmol/L (3.5-5.5); Sodium 141 mmol/L (135-145)
== END | disposition home or self-care (01) ==
LOC: LABWHC1 09:36
PROVIDERS: ATTEND Internal Medicine
DX: E87.5 Hyperkalemia (principal)
CPT/HCPCS: 36415; 80048; 82533

== ENCOUNTER 2024-07-22 09:52 | Day surgery (SDC) | payer MEDICARE ==
[2024-07-21 09:22] VITALS: BMI 29.5
[2024-07-22] MEDS: SODIUM CHLORIDE 0.9% 1,000 ML IV ONE ×2 (10:07→11:07)
[2024-07-22 10:15] VITALS: TEMP 98.2
[2024-07-22] MEDS ORDERED: LIDOCAINE 1% INJ 10MG/ML (20 ML MDV) ONE (11:08)
[2024-07-22] MEDS ORDERED: PROPOFOL 10 MG/ML 20 ML VIAL IV ONE (11:08)
--- NOTE | 2024-07-22 11:19 | P.PCN ---
Date of Procedure: 07/22/24 Procedure(s) Performed: BRIEF HISTORY: Patient is a 69-year-old pleasant white male scheduled for an elective colonoscopy as a part of screening for colon cancer. PROCEDURE PERFORMED: Colonoscopy with snare polypectomy. PREOPERATIVE DIAGNOSIS: Screening for colon cancer. IV sedation per Anesthesia. PROCEDURE: After informed consent was obtained, the patient, was brought into the endoscopy unit. IV sedation was administered by Anesthesia under continuous monitoring. Digital rectal examination was normal. Initially the Olympus CF-160 flexible video colonoscope was then inserted in the rectum, gradually advanced into the cecum without any difficulty. Careful examination was performed as the scope was gradually being withdrawn. Ileocecal valve and the appendiceal orifice were visualized and appeared normal. Prep was excellent. Mucosa of the cecum, appeared normal. In the ascending colon there was a 1 cm polyp removed by snare. Rest of the ascending colon, transverse colon, descending colon, sigmoid colon, and rectum appeared normal. Retroflexion was performed in the rectum and small were seen. The patient tolerated the procedure well. IMPRESSION: 1 cm ascending colon polyp status post snare polypectomy. Rest of the colon appeared normal. Small internal hemorrhoids. RECOMMENDATIONS: Findings of this examination were discussed with the patient as well as his family. He was advised to follow-up with the biopsy results. If the biopsy reveals adenoma he can have a colonoscopy in 3 years.
[2024-07-22 11:39] VITALS: BP 127/80; PULSE 63; RESP 18
== END 2024-07-22 11:55 | disposition home or self-care (01) ==
LOC: ORWHC2ENDO 09:52
PROVIDERS: ATTEND Internal Medicine Gastroenterology
DX: Z12.11 Encounter for screening for malignant neoplasm of colon (principal); D12.2 Benign neoplasm of ascending colon; K64.8 Other hemorrhoids; I10 Essential (primary) hypertension; Z85.46 Personal history of malignant neoplasm of prostate; Z79.899 Other long term (current) drug therapy
CPT/HCPCS: 88305; 45385; J2003; J2704

== ENCOUNTER 2025-02-13 05:15 | Emergency (ER) | payer MEDICARE ==
--- NOTE | 2025-02-13 05:46 | ED ---
General Adult HPI - General Source: patient, RN notes reviewed, old records reviewed Mode of arrival: ambulatory Limitations: no limitations <Buzz Terrell - Last Filed: 02/13/25 06:53> <Boris Davis - Last Filed: 02/13/25 07:31> - General Chief complaint: Abdominal Pain Stated complaint: R Hip Pain Time Seen by Provider: 02/13/25 05:27 - History of Present Illness Initial comments: 69-year-old male presenting for evaluation of right lower abdominal pain and right groin pain. Patient states he did have a minor injury to his hip 2 days prior. He states that yesterday this felt essentially back to normal he was able to work throughout the day without significant pain. He woke this morning with worsening pain in the right lower quadrant and groin. He states this does radiate into his testicle. He has no prior history of kidney stone. Pain was relatively sudden in onset. No dysuria or hematuria. No fever. Patient does report nausea without vomiting. (Buzz Terrell) - Related Data Home Medications Medication Instructions Recorded Confirmed amLODIPine [Norvasc] 2.5 mg PO QAM 07/21/24 07/22/24 Previous Rx's Medication Instructions Recorded Cyclobenzaprine [Flexeril] 10 mg PO TID PRN #12 tablet 02/13/25 Ibuprofen [Motrin] 600 mg PO Q6HR PRN #20 tab 02/13/25 Allergies Allergy/AdvReac Type Severity Reaction Status Date / Time No Known Allergies Allergy Verified 02/13/25 05:19 Review of Systems ROS Other: All systems not noted in ROS Statement are negative. <Buzz Terrell - Last Filed: 02/13/25 06:53> ROS Other: All systems not noted in ROS Statement are negative. <Boris Davis - Last Filed: 02/13/25 07:31> ROS Statement: Those systems with pertinent positive or pertinent negative responses have been documented in the HPI. Past Medical History Past Medical History: Cancer, Hypertension Additional Past Medical History / Comment(s): Current prostate cancer, had radiation. History of Any Multi-Drug Resistant Organisms: None Reported Past Surgical History: No Surgical Hx Reported Additional Past Surgical History / Comment(s): skin CA Past Anesthesia/Blood Transfusion Reactions: No Reported Reaction Additional Past Anesthesia/Blood Transfusion Reaction / Comment(s): Has never had anesthesia. Past Psychological History: No Psychological Hx Reported Smoking Status: Never smoker Past Alcohol Use History: None Reported Past Drug Use History: None Reported - Past Family History Mother Family Medical History: Cancer Additional Family Medical History / Comment(s): Lymphoma. Brother(s) Family Medical History: Cancer Additional Family Medical History / Comment(s): Prostate cancer. <Buzz Terrell - Last Filed: 02/13/25 06:53> General Exam Limitations: no limitations General appearance: alert, in no apparent distress Head exam: Present: atraumatic, normocephalic Eye exam: Present: normal appearance, PERRL Neck exam: Present: normal inspection. Absent: tenderness, meningismus Respiratory exam: Present: normal lung sounds bilaterally. Absent: respiratory distress, wheezes Cardiovascular Exam: Present: regular rate, normal rhythm GI/Abdominal exam: Present: soft. Absent: distended, tenderness, guarding, rebound exam: Present: normal inspection. Absent: scrotal swelling Extremities exam: Present: full ROM (Of the right hip) Neurological exam: Present: alert, oriented X3, CN II-XII intact. Absent: motor sensory deficit Psychiatric exam: Present: normal affect, normal mood Skin exam: Present: warm, dry, intact <Buzz Terrell - Last Filed: 02/13/25 06:53> Course Vital Signs 02/13/25 05:19 Temperature 97.5 F L Pulse Rate 79 Respiratory 22 Rate Blood Pressure 149/84 O2 Sat by Pulse 98 Oximetry Medical Decision Making - Lab Data Result diagrams: 02/13/25 05:53 02/13/25 05:53 <Buzz Terrell - Last Filed: 02/13/25 06:53> - Lab Data Result diagrams: 02/13/25 05:53 02/13/25 05:53 <Boris Davis - Last Filed: 02/13/25 07:31> - Medical Decision Making Was pt. sent in by a medical professional or institution (, PA, MEDIA ANALYTICS MANAGER, urgent care, hospital, or fpc...) When possible be specific @ -No Did you speak to anyone other than the patient for history (EMS, parent, family, police, friend...)? What history was obtained from this source @ -No Did you review nursing and triage notes (agree or disagree)? Why? @ -I reviewed and agree with nursing and triage notes Were old charts reviewed (outside hosp., previous admission, EMS record, old EKG, old radiological studies, urgent care reports/EKG's, fpc records)? Report findings @ -No old charts were reviewed Differential Abdominal Pain Men: Appendicitis, cholecystitis, diverticulosis, ischemic bowel, pancreatitis, hep atitis, UTI, gastroenteritis, AAA, incarcerated hernia, bowel obstruction, constipation, inflammatory bowel, hepatitis, peptic ulcer disease, splenic infarction, perforated viscus, testicular torsion, this is not meant to be an all-inclusive list EKG interpreted by me (3pts min.). @ -As above X-rays interpreted by me (1pt min.). @ -None done CT interpreted by me (1pt min.). @ -None done U/S interpreted by me (1pt. min.). @ -None done What testing was considered but not performed or refused? (CT, X-rays, U/S, labs)? Why? @ -None What meds were considered but not given or refused? Why? @ -None Did you discuss the management of the patient with other professionals (professionals i.e. , PA, MEDIA ANALYTICS MANAGER, lab, RT, psych nurse, foster care social worker, real estate loan processor, teacher, budget officer, caser up)? Give summary @ -No Was smoking cessation discussed for >3mins.? @ -No Was critical care preformed (if so, how long)? @ -No Were there social determinants of health that impacted care today? How? (Homele ssness, low income, unemployed, alcoholism, drug addiction, transportation, low edu. Level, literacy, decrease access to med. care, fpc, rehab)? @ -No Was there de-escalation of care discussed even if they declined (Discuss DNR or withdrawal of care, Hospice)? DNR status @ -No What co-morbidities impacted this encounter? (DM, HTN, Smoking, COPD, CAD, Cancer, CVA, ARF, Chemo, Hep., AIDS, mental health diagnosis, sleep apnea, morbid obesity)? @ -None Was patient admitted / discharged? Hospital course, mention meds given and route, prescriptions, significant lab abnormalities, going to OR and other pertinent info. @Patient care signed out at shift change awaiting laboratory testing, CT imaging and reevaluation. [facility] scan abdomen pelvis also interpreted by myself without evidence of acute abnormality. Patient reevaluated by myself. Patient resting comfortably in bed. Abdomen soft and nontender. No tenderness near the right hip or abnormality on exam. Patient is symptom-free following medication. Patient and family are updated on results and plan. Diagnosis: Right flank pain Acuity: Acute (Boris Davis) - Lab Data Lab Results 02/13/25 02/13/25 02/13/25 Range/Units 05:45 05:53 05:53 WBC 5.00 (4.50-10.00) 10*3/uL RBC 4.03 L (4.40-5.60) 10*6/uL Hgb 11.9 L (13.0-17.0) g/dL Hct 34.2 L (39.6-50.0) % MCV 84.9 (80.0-97.0) fL MCH 29.5 (27.0-32.0) pg MCHC 34.8 (32.0-37.0) g/dL Plt Count 200 (140-440) 10*3/uL MPV 9.1 L (9.5-12.2) fL Immature Gran % (Auto) 0.2 % Neutrophils % 65.4 % Lymphocytes % 22.0 % Monocytes % 9.4 % Eosinophils % 2.6 % Basophils % 0.4 % Immature Gran # 0.01 (0.00-0.04) 10*3/uL Neutrophils # 3.27 (1.80-7.70) 10*3/uL Lymphocytes # 1.10 (0.90-5.00) 10*3/uL Monocytes # 0.47 (0.20-1.00) 10*3/uL Eosinophils # 0.13 (0.04-0.35) 10*3/uL Basophils # 0.02 (0.00-0.10) 10*3/uL PT 9.9 L (10.0-12.5) sec INR 0.9 (<1.2) APTT 20.3 L (22.0-30.0) sec Sodium (137-145) mmol/L Potassium (3.5-5.1) mmol/L Chloride (98-107) mmol/L Carbon Dioxide (22-30) mmol/L Anion Gap mmol/L BUN (9-20) mg/dL Creatinine (0.66-1.25) mg/dL Est GFR (CKD-EPI)AfAm (>60 ml/min/1.73 sqM) Est GFR (CKD-EPI)NonAf (>60 ml/min/1.73 sqM) Glucose (74-99) mg/dL Calcium (8.4-10.2) mg/dL Total Bilirubin (0.2-1.3) mg/dL AST (17-59) U/L ALT (4-49) U/L Alkaline Phosphatase (38-126) U/L Total Protein (6.3-8.2) g/dL Albumin (3.5-5.0) g/dL Amylase (30-110) U/L Lipase (23-300) U/L Urine Color Colorless Urine Appearance Clear (Clear) Urine pH 5.0 (5.0-8.0) Ur Specific [place] 1.025 (1.001-1.035) Urine Protein Negative (Negative) Urine Glucose (UA) Negative (Negative) Urine Ketones 1+ H (Negative) Urine Blood Negative (Negative) Urine Nitrite Negative (Negative) Urine Bilirubin Negative (Negative) Urine Urobilinogen <2.0 (<2.0) mg/dL Ur Leukocyte Esterase Negative (Negative) 02/13/25 Range/Units 05:53 WBC (4.50-10.00) 10*3/uL RBC (4.40-5.60) 10*6/uL Hgb (13.0-17.0) g/dL Hct (39.6-50.0) % MCV (80.0-97.0) fL MCH (27.0-32.0) pg MCHC (32.0-37.0) g/dL Plt Count (140-440) 10*3/uL MPV (9.5-12.2) fL Immature Gran % (Auto) % Neutrophils % % Lymphocytes % % Monocytes % % Eosinophils % % Basophils % % Immature Gran # (0.00-0.04) 10*3/uL Neutrophils # (1.80-7.70) 10*3/uL Lymphocytes # (0.90-5.00) 10*3/uL Monocytes # (0.20-1.00) 10*3/uL Eosinophils # (0.04-0.35) 10*3/uL Basophils # (0.00-0.10) 10*3/uL PT (10.0-12.5) sec INR (<1.2) APTT (22.0-30.0) sec Sodium 137 (137-145) mmol/L Potassium 4.0 (3.5-5.1) mmol/L Chloride 105 (98-107) mmol/L Carbon Dioxide 23 (22-30) mmol/L Anion Gap 9 mmol/L BUN 27 H (9-20) mg/dL Creatinine 0.89 (0.66-1.25) mg/dL Est GFR (CKD-EPI)AfAm >90 (>60 ml/min/1.73 sqM) Est GFR (CKD-EPI)NonAf 89 (>60 ml/min/1.73 sqM) Glucose 133 H (74-99) mg/dL Calcium 9.2 (8.4-10.2) mg/dL Total Bilirubin 0.4 (0.2-1.3) mg/dL AST 25 (17-59) U/L ALT 16 (4-49) U/L Alkaline Phosphatase 65 (38-126) U/L Total Protein 7.1 (6.3-8.2) g/dL Albumin 4.3 (3.5-5.0) g/dL Amylase 47 (30-110) U/L Lipase 51 (23-300) U/L Urine Color Urine Appearance (Clear) Urine pH (5.0-8.0) Ur Specific [place] (1.001-1.035) Urine Protein (Negative) Urine Glucose (UA) (Negative) Urine Ketones (Negative) Urine Blood (Negative) Urine Nitrite (Negative) Urine Bilirubin (Negative) Urine Urobilinogen (<2.0) mg/dL Ur Leukocyte Esterase (Negative) Disposition <Buzz Terrell - Last Filed: 02/13/25 06:53> Is patient prescribed a controlled substance at d/c from ED?: No Time of Disposition: 07:30 <Boris Davis - Last Filed: 02/13/25 07:31> Clinical Impression: Right flank pain Disposition: HOME SELF-CARE Condition: Stable Instructions (If sedation given, give patient instructions): Flank Pain (ED) Additional Instructions: Prescription sent to pharmacy. Please do follow-up with your primary care physician in the next day or 2 for recheck. Return for increased pain, fever, vomiting, worsening or changing symptoms or any other concerns. Prescriptions: Cyclobenzaprine [Flexeril] 10 mg PO TID PRN #12 tablet PRN Reason: Pain Ibuprofen [Motrin] 600 mg PO Q6HR PRN #20 tab PRN Reason: Pain Referrals: Serafin Su DO [Primary Care Provider] - 1-2 days
[2025-02-13] MEDS: HYDROmorphone 0.5 MG/0.5 ML SYRINGE IVP STA (05:55)
[2025-02-13] MEDS: ONDANSETRON 4 MG/2 ML VIAL IVP STA (05:58)
[2025-02-13 06:04] LABS: Basophils # (A) 0.02 10*3/uL (0.00-0.10); Basophils % (A) 0.4 %; Eosinophils # (A) 0.13 10*3/uL (0.04-0.35); Eosinophils % (A) 2.6 %; HCT 34.2 % (39.6-50.0); HGB 11.9 g/dL (13.0-17.0); Lymphocytes # (A) 1.10 10*3/uL (0.90-5.00); Lymphocytes % (A) 22.0 %; MCH 29.5 pg (27.0-32.0); MCHC 34.8 g/dL (32.0-37.0); MCV 84.9 fL (80.0-97.0); Monocytes # (A) 0.47 10*3/uL (0.20-1.00); Monocytes % (A) 9.4 %; Neutrophils # (A) 3.27 10*3/uL (1.80-7.70); Neutrophils % (A) 65.4 %; Platelet Count 200 10*3/uL (140-440); RBC 4.03 10*6/uL (4.40-5.60); RDW 12.9 % (11.5-14.5); WBC 5.00 10*3/uL (4.50-10.00)
[2025-02-13 06:14] LABS: ALT 16 U/L (4-49); AST 25 U/L (17-59); African American GFR (CKD) >90 (>60 ml/min/1.73 sqM); Albumin 4.3 g/dL (3.5-5.0); Alkaline Phosphatase 65 U/L (38-126); Amylase 47 U/L (30-110); Anion Gap 9 mmol/L; Blood Urea Nitrogen 27 mg/dL (9-20); Calcium 9.2 mg/dL (8.4-10.2); Carbon Dioxide 23 mmol/L (22-30); Chloride 105 mmol/L (98-107); Glucose 133 mg/dL (74-99); Lipase 51 U/L (23-300); Non-African American GFR(CKD) 89 (>60 ml/min/1.73 sqM); Potassium 4.0 mmol/L (3.5-5.1); Sodium 137 mmol/L (137-145); Total Protein 7.1 g/dL (6.3-8.2)
[2025-02-13 06:25] LABS: Bilirubin,Urine Negative (Negative); Blood,Urine Negative (Negative); Color,Urine Colorless; Glucose,Urine (UA) Negative (Negative); Ketones,Urine 1+ (Negative); Leukocyte Esterase,Urine Negative (Negative); Nitrite,Urine Negative (Negative); PH, Urine 5.0 (5.0-8.0); Protein,Urine Negative (Negative); Specific Gravity,Urine 1.025 (1.001-1.035); Urobilinogen,Urine <2.0 mg/dL (<2.0)
[2025-02-13 06:32] LABS: INR 0.9 (<1.2); Prothrombin Time 9.9 sec (10.0-12.5)
--- NOTE | 2025-02-13 07:17 | CT ---
EXAMINATION TYPE: CT abdomen pelvis wo con CT DLP: 650.4 mGycm, Automated exposure control for dose reduction was used. DATE OF EXAM: 02/13/2025 6:17 AM COMPARISON: None CLINICAL INDICATION:Male, 69 years old with history of RLQ/groin pain; TECHNIQUE: Standard CT of the abdomen and pelvis without IV or oral contrast. Lack of IV or oral co ntrast limits evaluation of solid and hollow organ viscera. Coronal and sagittal reformats were perfo rmed. FINDINGS: LOWER CHEST: Left lower lobe subpleural 4 mm pulmonary nodule. Mild coronary artery calcifications vi sualized. ABDOMEN LIVER: Unremarkable noncontrast appearance GALLBLADDER AND BILE DUCTS: Unremarkable noncontrast appearance PANCREAS: Unremarkable noncontrast appearance SPLEEN: Unremarkable noncontrast appearance ADRENAL GLANDS: Unremarkable noncontrast appearance. KIDNEYS AND URETERS: No evidence of hydronephrosis or renal calculus. Symmetrical nonspecific bilater al perinephric fat stranding. No ureteral calculus or hydroureter. PELVIS BLADDER: Unremarkable noncontrast appearance REPRODUCTIVE: Brachytherapy seeds within the prostate gland. ABDOMEN & PELVIS STOMACH AND BOWEL: Stomach and duodenum are unremarkable. The appendix is within normal limits. No [place] wall thickening or surrounding inflammatory changes. No evidence of bowel obstruction. PERITONEUM: No evidence of pneumoperitoneum or free fluid. VASCULATURE: Mild atherosclerotic calcifications are present throughout the abdominal aorta and its b ranches. No evidence of aortic aneurysm. Right-sided pelvic phlebolith. MUSCULOSKELETAL: No acute osseous abnormalities. Grade 1 anterolisthesis of L4 on L5 without evidence of pars defects. LYMPH NODES: No gross evidence for lymphadenopathy. SOFT TISSUE/ABDOMINAL WALL: Patulous small fat filled bilateral inguinal rings. IMPRESSION: 1. No evidence for obstructive uropathy. The appendix is unremarkable. 2. Left lower lobe 4 mm pulmonary nodule. According to Fleischner criteria in a low risk patient no f ollow-up is recommended. In a high-risk patient consider optional CT chest in 12 months. [facility], , 02/13/2025 7:14 AM
[2025-02-13 07:24] LABS: Partial Thromboplastin Time 20.3 sec (22.0-30.0)
[2025-02-13 07:39] VITALS: BP 124/73; PULSE 78; RESP 18; TEMP 97.4
== END 2025-02-13 07:39 | disposition home or self-care (01) ==
LOC: EC 05:15
DX: R10.31 Right lower quadrant pain (principal)
CPT/HCPCS: 36415; 80053; 82150; 83690; 85025; 85610; 85730; 81003; 74176; 99284; 96374; 96375; J2405; J1171